=== PATIENT | male | born 1940 | race Native Hawaiian/Other Pacific Islander ===

== ENCOUNTER 2022-12-29 14:08 | Inpatient (IN) | payer OTHER ==
[2023-01-05] MEDS ORDERED: CLIN300C PO (15:21)
[2023-01-12] MEDS ORDERED: HOUR PAIN PO (15:20)
[2023-01-12] MEDS ORDERED: ASA LOW DOSE81 MG PO (15:20)
[2023-01-12] MEDS ORDERED: IPRATROPIUM/ INH (15:22)
[2023-01-12] MEDS ORDERED: DOXAZOSIN4 M1 PO (15:22)
[2023-01-12] MEDS ORDERED: LISI5TAB10 PO (15:23)
[2023-01-12] MEDS ORDERED: LIPITOR40 MG PO (15:23)
[2023-01-12] MEDS ORDERED: FURO20TA67 PO (15:23)
[2023-01-12] MEDS ORDERED: ALUM-67 PO (15:24)
[2023-01-12] MEDS ORDERED: METO25TA4 PO (15:25)
[2023-01-12] MEDS ORDERED: K-TABS10 MEQ PO (15:26)
[2023-01-12] MEDS ORDERED: CLOP75TA2 PO (15:26)
[2023-01-12] MEDS ORDERED: HYDR5TAB9 PO (15:26)
[2023-01-12] MEDS ORDERED: ONDA4TAB3 PO (15:27)
== END 2023-01-17 18:45 | disposition still patient (30) ==
LOC: PAVC 14:08
PROVIDERS: ADMIT Internal Medicine; ATTEND Internal Medicine
DX: J18.9 Pneumonia, unspecified organism (principal); R26.2 Difficulty in walking, not elsewhere classified; M62.81 Muscle weakness (generalized); Z74.1 Need for assistance with personal care; R13.11 Dysphagia, oral phase; R41.841 Cognitive communication deficit
CPT/HCPCS: 87081; 87507

== ENCOUNTER 2022-12-30 05:39 | Outpatient (CLI) | payer OTHER | END 2022-12-30 18:53 | disposition home or self-care (01) | LOC: LAB 05:39 | PROVIDERS: ATTEND Internal Medicine | DX: Z76.89 Persons encountering health services in other specified circumstances (principal); Z16.24 Resistance to multiple antibiotics | CPT/HCPCS: 87081 ==

== ENCOUNTER 2023-01-12 09:00 | Inpatient (IN) | payer OTHER ==
[~2023-01-12] VITALS: Ht 175.3 cm; Wt 64.9 kg
[2023-01-12] VITALS (7 sets, daily range): BP systolic 113–149; BP diastolic 33–109; TEMP 98.3–99.8; Ht 175.3 cm; Wt 64.9 kg
[~2023-01-12 09:00] MED LIST: CLIN300C PO
[2023-01-12 09:59] LABS: PLATELET COUNT 227 K/uL (142-355)
[2023-01-12 10:03] LABS: POTASSIUM 3.4 mmol/L (3.6-5.2)
[2023-01-12] MEDS ORDERED: ASA LOW DOSE81 MG PO (15:20)
[2023-01-12] MEDS ORDERED: HOUR PAIN PO (15:20)
[2023-01-12] MEDS ORDERED: DOXAZOSIN4 M1 PO (15:22)
[2023-01-12] MEDS ORDERED: IPRATROPIUM/ INH (15:22)
[2023-01-12] MEDS ORDERED: LISI5TAB10 PO (15:23)
[2023-01-12] MEDS ORDERED: FURO20TA67 PO (15:23)
[2023-01-12] MEDS ORDERED: LIPITOR40 MG PO (15:23)
[2023-01-12] MEDS ORDERED: ALUM-67 PO (15:24)
[2023-01-12] MEDS ORDERED: METO25TA4 PO (15:25)
[2023-01-12] MEDS ORDERED: HYDR5TAB9 PO (15:26)
[2023-01-12] MEDS ORDERED: CLOP75TA2 PO (15:26)
[2023-01-12] MEDS ORDERED: K-TABS10 MEQ PO (15:26)
[2023-01-12] MEDS ORDERED: ONDA4TAB3 PO (15:27)
[2023-01-13 03:49] VITALS: BP 102/30; TEMP 97.4
[2023-01-13 04:39] LABS: PLATELET COUNT 197 K/uL (142-355)
[2023-01-13 04:48] LABS: POTASSIUM 2.8 mmol/L (3.6-5.2)
[2023-01-13 07:50] VITALS: BP 104/59; TEMP 98
[2023-01-13 12:00] VITALS: BP 133/52; TEMP 97.3
[2023-01-13 15:54] VITALS: BP 133/53; TEMP 97.8
[2023-01-13 19:39] VITALS: BP 130/60; TEMP 98.7
[2023-01-13 23:31] VITALS: BP 111/60; TEMP 100
[2023-01-14 03:40] VITALS: BP 111/32; TEMP 99.3
[2023-01-14 04:49] LABS: POTASSIUM 3.9 mmol/L (3.6-5.2)
[2023-01-14 04:50] LABS: PLATELET COUNT 258 K/uL (142-355)
[2023-01-14 08:00] VITALS: BP 119/44; TEMP 97.6
[2023-01-14 12:00] VITALS: BP 122/57; TEMP 97.6
[2023-01-14 16:09] VITALS: BP 107/59; TEMP 97.3
[2023-01-14 20:22] VITALS: BP 97/54; TEMP 97.6
[2023-01-15] VITALS: BP 90/59; TEMP 98
[2023-01-15 04:00] VITALS: BP 90/50; TEMP 98
[2023-01-15 05:49] LABS: POTASSIUM 3.2 mmol/L (3.6-5.2)
[2023-01-15 05:51] LABS: PLATELET COUNT 234 K/uL (142-355)
[2023-01-15 08:06] VITALS: BP 95/39; TEMP 97.7
[2023-01-15 12:15] VITALS: BP 92/55; TEMP 97.7
[2023-01-15 16:08] VITALS: BP 97/59; TEMP 97.7
[2023-01-15 19:33] VITALS: BP 113/62; BP 135/63; TEMP 97.7; TEMP 98.1
[2023-01-16] VITALS: BP 106/62; TEMP 98.1
[2023-01-16 04:00] VITALS: BP 106/68; TEMP 98.3
[2023-01-16 05:58] LABS: PLATELET COUNT 223 K/uL (142-355); POTASSIUM 4.2 mmol/L (3.6-5.2)
[2023-01-16 08:00] VITALS: BP 111/71; TEMP 98.1
[2023-01-16 12:00] VITALS: BP 124/67; TEMP 98.2
[2023-01-16 16:00] VITALS: BP 119/79; TEMP 98.4
[2023-01-16 20:00] VITALS: BP 110/68; TEMP 97.7
[2023-01-17] VITALS (7 sets, daily range): BP systolic 94–144; BP diastolic 42–79; TEMP 97.3–98.7
[2023-01-17 06:35] LABS: PLATELET COUNT 156 K/uL (142-355)
[2023-01-18 03:46] VITALS: BP 111/37; TEMP 97.7
[2023-01-18 05:32] LABS: PLATELET COUNT 264 K/uL (142-355)
[2023-01-18 05:44] LABS: POTASSIUM 2.6 mmol/L (3.6-5.2)
[2023-01-18 08:00] VITALS: BP 103/49; TEMP 97.3
[2023-01-18 09:14] LABS: POTASSIUM 2.7 mmol/L (3.6-5.2)
[2023-01-18 11:54] VITALS: BP 92/59; TEMP 98.6
[2023-01-18 16:00] VITALS: BP 90/45; TEMP 97.8
[2023-01-18 19:55] VITALS: BP 118/40; TEMP 98.3
[2023-01-18 23:32] VITALS: BP 105/51; TEMP 97.6
[2023-01-19 03:53] VITALS: BP 153/85; TEMP 98
[2023-01-19 05:02] LABS: PLATELET COUNT 249 K/uL (142-355)
[2023-01-19 05:20] LABS: POTASSIUM 3.3 mmol/L (3.6-5.2)
[2023-01-19 07:56] VITALS: BP 110/41; TEMP 98
[2023-01-19 12:00] VITALS: BP 112/40; TEMP 97.7
[2023-01-19] MEDS ORDERED: SILV1CRE EX (12:43)
== END 2023-01-19 15:00 | DRG 194 ==
LOC: ED 09:00 → MED/SURG 11:04
PROVIDERS: Internal Medicine Endocrinology, Diabetes & Metabolism; ADMIT Family Medicine; ATTEND Internal Medicine
DX: J18.9 Pneumonia, unspecified organism (principal); E87.0 Hyperosmolality and hypernatremia; N17.8 Other acute kidney failure; Z68.1 Body mass index [BMI] 19.9 or less, adult; E87.8 Other disorders of electrolyte and fluid balance, not elsewhere classified; Z79.01 Long term (current) use of anticoagulants; K52.89 Other specified noninfective gastroenteritis and colitis; R09.02 Hypoxemia; E87.6 Hypokalemia; R62.7 Adult failure to thrive; R63.0 Anorexia; D64.89 Other specified anemias; E83.42 Hypomagnesemia; R00.1 Bradycardia, unspecified
CPT/HCPCS: 36415; 36600; 80048; 80053; 81002; 82272; 82805; 83630; 83735; 83880; 84100; 84443; 84484; 85007; 85027; 85379; 87015; 87045; 87070; 87077; 87185; 87186; 87205; 87324; 87328; 87329; 87449; 87899; 93005; 94664; 94760; 96360; 96361; 99284; J0456; J0696; J1650; J2405; J3475; J3490; J7040

== ENCOUNTER 2023-01-19 18:20 | Emergency (ER) | payer OTHER ==
[~2023-01-19] VITALS: Ht 175.3 cm; Wt 72.6 kg
[2023-01-19 18:20] VITALS: TEMP 98
[~2023-01-19 18:20] MED LIST changes: +ALUM-67 PO; +ASA LOW DOSE81 MG PO; +CLOP75TA2 PO; +DOXAZOSIN4 M1 PO; +FURO20TA67 PO; +HOUR PAIN PO; +HYDR5TAB9 PO; +IPRATROPIUM/ INH; +K-TABS10 MEQ PO; +LIPITOR40 MG PO; +LISI5TAB10 PO; +METO25TA4 PO; +ONDA4TAB3 PO; +SILV1CRE EX
[2023-01-19 20:13] LABS: POTASSIUM 4.5 mmol/L (3.6-5.2)
[2023-01-19 20:26] LABS: PLATELET COUNT 322 K/uL (142-355)
[2023-01-20 00:05] VITALS: BP 105/47
== END 2023-01-20 00:05 ==
LOC: ED 18:20
PROVIDERS: Family Medicine
DX: R06.00 Dyspnea, unspecified (principal); I11.0 Hypertensive heart disease with heart failure; I50.9 Heart failure, unspecified; K21.9 Gastro-esophageal reflux disease without esophagitis; E78.00 Pure hypercholesterolemia, unspecified; I10 Essential (primary) hypertension; I48.91 Unspecified atrial fibrillation; Z66 Do not resuscitate
CPT/HCPCS: 36415; 80053; 85007; 85027; 85379; 93005; 96374; 99284; J1630; J1885; J1940; J2270

== ENCOUNTER 2023-01-20 10:25 | Emergency (ER) | payer OTHER ==
[~2023-01-20] VITALS: Ht 175.3 cm; Wt 72.6 kg
[2023-01-20 10:25] VITALS: BP 72/51; TEMP 97.8
== END 2023-01-20 15:54 | disposition expired ==
LOC: ED 10:25
DX: I46.9 Cardiac arrest, cause unspecified (principal); R09.2 Respiratory arrest; J18.9 Pneumonia, unspecified organism; I11.0 Hypertensive heart disease with heart failure; I50.9 Heart failure, unspecified; R53.81 Other malaise; Z66 Do not resuscitate
CPT/HCPCS: 93005; 99285; J2060; J2270; J2405